=== PATIENT | female | born 1975 | race Caucasian/White ===

== ENCOUNTER 2022-03-07 05:03 | Emergency (ER) | payer SELFPAY ==
[~2022-03-07] VITALS: Ht 165.1 cm; Wt 68.5 kg
[2022-03-07] MEDS ORDERED: KETOROLAC 60MG/2ML VIAL IM ONE (06:15)
[2022-03-07] MEDS ORDERED: IBUP-2028 PO (06:16)
[2022-03-07] MEDS ORDERED: T3 PO (06:16)
[2022-03-07 06:40] VITALS: BP 121/78
== END 2022-03-07 06:20 | disposition home or self-care (01) ==
LOC: ER 05:03
DX: M54.2 Cervicalgia (principal); M54.9 Dorsalgia, unspecified; I10 Essential (primary) hypertension; E11.9 Type 2 diabetes mellitus without complications
CPT/HCPCS: 81025; 96372; 99283; J1885; Z7610